=== PATIENT | female | born 1995 | race Caucasian/White ===

== ENCOUNTER 2017-12-20 00:56 | Emergency (ER) | payer BC ==
[~2017-12-20] VITALS: Ht 167.6 cm; Wt 68.2 kg
[2017-12-20 00:59] VITALS: Ht 167.6 cm; Wt 68.2 kg
[2017-12-20 01:59] VITALS: BP 106/73
== END 2017-12-20 01:59 | disposition home or self-care (01) ==
LOC: ED 00:56
DX: S09.90XA Unspecified injury of head, initial encounter (principal); S00.511A Abrasion of lip, initial encounter; X58.XXXA Exposure to other specified factors, initial encounter; Y93.89 Activity, other specified; Y92.89 Other specified places as the place of occurrence of the external cause; Y99.8 Other external cause status

== ENCOUNTER 2020-03-23 20:28 | Emergency (ER) | payer OTHER ==
[~2020-03-23] VITALS: Ht 170.2 cm; Wt 80.3 kg
[2020-03-23 23:24] VITALS: BP 118/71
== END 2020-03-23 23:24 | disposition home or self-care (01) ==
LOC: ED 20:28
DX: S31.050A Open bite of lower back and pelvis without penetration into retroperitoneum, initial encounter (principal); W57.XXXA Bitten or stung by nonvenomous insect and other nonvenomous arthropods, initial encounter; Y93.89 Activity, other specified; Y92.89 Other specified places as the place of occurrence of the external cause; Y99.8 Other external cause status